=== PATIENT | female | born 1950 | race African-American/Black ===

== ENCOUNTER → 2023-06-29 13:32 | Outpatient (REF) | payer MEDICARE, OTHER, SELFPAY | LOC: HWRAD 13:32 | PROVIDERS: ATTENDING PHYSICIAN Student in an Organized Health Care Education/Training Program | DX: R22.1 Localized swelling, mass and lump, neck (principal) | CPT/HCPCS: 76536 ==

== ENCOUNTER → 2024-07-23 14:41 | Outpatient (REF) | payer MEDICARE, OTHER, SELFPAY | LOC: HWRAD 14:41 | DX: M75.01 Adhesive capsulitis of right shoulder (principal); W19.XXXA Unspecified fall, initial encounter; M25.60 Stiffness of unspecified joint, not elsewhere classified | CPT/HCPCS: 73030; 73070; 73090 ==